=== PATIENT | female | born 1950 | race Caucasian/White ===

== ENCOUNTER 2016-11-11 20:59 | Emergency (ER) | payer OTHER, MEDICARE ==
[2016-11-11] MEDS ORDERED: fentaNYL 100 MCG/2 ML INJ IVP ONE ×2 (21:24→22:08)
--- NOTE | 2016-11-11 22:02 | EDPHY ---
H & P Time Seen by Provider: 11/11/16 21:59 HPI/ROS: Chief complaint. Knee pain HPI. 66-year-old female here by EMS after trip and fall earlier this evening landing on her left knee. No other injuries. Pain and swelling to the anterior aspect of the left knee. Patient is on Xarelto but did not strike her head. No previous injury to the knee. Initially unable to bear weight no hip or ankle pain ROS Constitutional. no fever/chills, no weakness Eyes. no problems with vision ENT. no sore throat, no nasal drainage Cardiovascular. no chest pain Respiratory. no shortness of breath, no cough Abdominal. no abdominal pain, no nausea/vomiting, no diarrhea . no problems urinating MS. Left knee pain and swelling Skin. no rash Lymph. no swollen glands Neuro. Difficulty walking Past Medical/Surgical History: Past medical history significant for hypertension, diabetes, blood clots, cholecystectomy, hysterectomy, mastectomy Social History: , nonsmoker, visiting from [place], no alcohol Smoking Status: Former smoker Physical Exam: General Appearance: Alert well-developed female moderate distress vital signs are stable Eyes: Pupils equal and round no pallor or injection. ENT, Mouth: Mucous membranes are moist. Respiratory: There are no retractions, lungs are clear to auscultation. Cardiovascular: Regular rate and rhythm. Gastrointestinal: Abdomen is soft and nontender, no masses, bowel sounds normal. Neurological: Awake and alert, sensory and motor exams grossly normal. Skin: Warm and dry, no rashes. Musculoskeletal: Neck is supple nontender. Extremities hematoma over the anterior left knee. Tenderness to the patella. No medial or lateral joint line tenderness. No hip or ankle discomfort Psychiatric: Patient is oriented X 3, there is no agitation. Constitutional: Initial Vital Signs Temperature (C) 37.0 C 11/11/16 20:59 Heart Rate 110 H 11/11/16 20:59 Respiratory Rate 22 H 11/11/16 20:59 Blood Pressure 141/88 H 11/11/16 20:59 O2 Sat (%) 91 L 11/11/16 20:59 O2 Delivery Mode Room Air O2 (L/minute) 2 Allergies/Adverse Reactions: codeine Allergy (Verified 11/11/16 21:14) sulfamethoxazole [From Bactrim] Allergy (Verified 11/11/16 21:14) trimethoprim [From Bactrim] Allergy (Verified 11/11/16 21:14) Home Medications: Medication Instructions Recorded Avastin 11/11/16 Lantus 100 UNITS/ML (*) 11/11/16 Lipitor 11/11/16 Losartan Potassium 11/11/16 Metformin 1000 mg 11/11/16 Victoza 3-Miguelangel 11/11/16 Xarelto 11/11/16 Zoloft 100mg (*) 11/11/16 oxyCODONE/APAP 5/325 [Percocet 1 tab PO Q4-6PRN PRN #14 tab 11/11/16 5/325] Medical Decision Making - Diagnostics Imaging: X-ray left knee reveals a displaced patellar fracture Procedures: IV normal saline IV fentanyl and Ativan. Patient is placed in the Mark bandage and a knee immobilizer. Post knee immobilizer application shows good anatomic position and distal motor vascular sensitivity to be intact ED Course/Re-evaluation: Patient and I discussed imaging study results, treatment plan including likely need for surgery. She is visiting from [place] and going home on Wednesday. I will give her the name of orthopedist data power consultant and encouraged her to call the office tomorrow morning. She is given her x-rays on disc. She also has the option to have this further evaluated and treated at home. Patient expresses understanding and agreement Differential Diagnosis: I considered fracture, dislocation, contusion - Data Points Medications Given: Discontinued Medications Fentanyl (Sublimaze) 75 mcg IVP EDNOW ONE Stop: 11/11/16 21:25 Last Admin: 11/11/16 21:28 Dose: 75 mcg Fentanyl (Sublimaze) 100 mcg IVP EDNOW ONE Stop: 11/11/16 22:09 Last Admin: 11/11/16 22:25 Dose: 50 mcg Lorazepam (Ativan Injection) 1 mg IVP EDNOW ONE Stop: 11/11/16 22:09 Last Admin: 11/11/16 22:25 Dose: 0.5 mg Departure - Departure Disposition: Home, Routine, Self-Care Clinical Impression: Patella fracture Qualifiers: Encounter type: initial encounter Fracture type: closed Fracture morphology: transverse Fracture alignment: displaced Laterality: left Qualified Code(s): S82.032A - Displaced transverse fracture of left patella, initial encounter for closed fracture Condition: Good Instructions: Patellar Fracture (ED) Additional Instructions: Knee immobilizer and crutches until see orthopedist. Ice to knee next 48 hours. Percocet as needed for pain. Return for worsening symptoms. Call orthopedist in the morning for further evaluation before going home to [place]. Referrals: Patient,NotPresent [Unknown] - As per Instructions Samuel Olsen MD [Medical Doctor] - 1 day without fail Prescriptions: oxyCODONE/APAP 5/325 [Percocet 5/325] 1 tab PO Q4-6PRN PRN #14 tab PRN Reason: Pain, Moderate
[2016-11-11] MEDS ORDERED: LORazepam 2 MG/ML INJ IVP ONE (22:08)
[2016-11-11] MEDS ORDERED: ONDANSETRON 4MG PREPACK#2 BTL TAKEHOME ONE ×2 (22:39→23:01)
[2016-11-11] MEDS ORDERED: ONDANSETRON 4 MG/2 ML VIAL ONE (22:39)
[2016-11-11] MEDS ORDERED: OXYCODONE/APAP 5/325MG PREPACK#4 BTL TAKEHOME ONE ×2 (22:57→23:01)
[2016-11-11] MEDS ORDERED: ONDANSETRON 4 MG/2 ML VIAL IVP ONE (23:00)
[2016-11-11 23:24] VITALS: BP 110/84; PULSE 100; RESP 18; TEMP 97; O2SAT 90
== END 2016-11-11 23:22 | disposition home or self-care (01) ==
DX: S82.032A Displaced transverse fracture of left patella, initial encounter for closed fracture (principal); I10 Essential (primary) hypertension; E11.9 Type 2 diabetes mellitus without complications; Z87.891 Personal history of nicotine dependence; Z79.01 Long term (current) use of anticoagulants; W01.0XXA Fall on same level from slipping, tripping and stumbling without subsequent striking against object, initial encounter
CPT/HCPCS: 73560; 96374; 96375; 96376; 99284; J2405; J3010; L1830; J2060